=== PATIENT | male | born 1935 | race Caucasian/White ===

== ENCOUNTER → 2017-12-21 | Day surgery (SDC) | payer MEDICARE ==
[~2017-12-21] MED LIST: ALEVE220 MG PO; BUPIVACAINE 0.25%/EPI 30ML SDV INJ ONE; CALCIUM CARBON500 MG PO; CIALIS PO; DEXAMETHASONE SOD PHOS INJ 4 MG/ML VIAL ONE; FENTANYL CITRATE/PF 100MCG/2 ML INJ ONE; FENTANYL TD; KETOROLAC TROMETHAMINE 30 MG/ML VIAL ONE; LIDOCAINE HCL 1% LOCAL INJ 20 ML VIAL ONE; LIDOCAINE HCL 2% LOCAL INJ 5 ML SDV VIAL INJ ONE; LIPITOR20 MG PO; MIDAZOLAM HCL 2 MG/2 ML VIAL ONE; MSM500 MG PO; NEXIUM40 MG PO; ONDANSETRON HCL INJ 2 MG/ML VIAL ONE; PROPOFOL IV EMULSION 10 MG/ML 20 ML VIAL ONE; SEVOFLURANE INHAL SOLN 250 ML PEN BTL ONE; [UNRECOGNIZED DRUG - OTHER] PO; [UNRECOGNIZED DRUG - OTHER] PO
[2017-12-21 11:20] LABS: BASOPHILS % 0.3 % (0.0-1.0); EOSINOPHILS % 0.1 % (0.0-6.0); HEMATOCRIT 41.2 % (38.2-49.6); HEMOGLOBIN 14.1 g/dL (14.0-18.0); LYMPHOCYTES % 10.9 % (18.0-39.1); MEAN CORPUSCULAR HEMOGLOBIN 29.2 pg (28-32); MEAN CORPUSCULAR HGB CONC 34.2 g/dL (31-35); MEAN CORPUSCULAR VOLUME 85.3 fL (81-99); MONOCYTES # (AUTO) 0.8 (0.2-0.8); MONOCYTES % 8.3 % (4.4-11.3); NEUTROPHILS # (AUTO) 7.4 (2.1-6.9); PLATELET COUNT 239 x10e3/uL (140-360); RED BLOOD COUNT 4.83 x10e6/uL (4.3-5.7); RED CELL DISTRIBUTION WIDTH 14.9 % (11.7-14.4)
[2017-12-21 11:38] LABS: ANION GAP 12.5 mmol/L (8-16); BLOOD UREA NITROGEN 11 mg/dL (7-26); BUN/CREATININE RATIO 14 (6-25); CALCIUM 9.8 mg/dL (8.4-10.2); CARBON DIOXIDE 27 mmol/L (22-29); CHLORIDE 96 mmol/L (98-107); CREATININE, SERUM 0.78 mg/dL (0.72-1.25); EST GLOMERULAR FILTRATION RATE > 60 ML/MIN (60-); GLUCOSE 104 mg/dL (74-118); POTASSIUM 4.5 mmol/L (3.5-5.1); SODIUM 131 mmol/L (136-145)
--- NOTE | 2017-12-21 12:53 | Diagnostic Imaging Report ---
PROCEDURE: Frontal and lateral views of the chest. COMPARISON: None. INDICATIONS: PREOP - HERNIA SX FINDINGS: Lines/tubes: None. Lungs: The lungs are well inflated and clear. There is no evidence of pneumonia or pulmonary edema. Pleura: There is no pleural effusion or pneumothorax. Heart and mediastinum: The heart and the mediastinum are normal. Atherosclerotic calcifications. Bones: No acute bony abnormality. Multilevel kyphoplasty changes. Kyphotic angulation of the thoracic spine. IMPRESSION: No acute radiographic abnormality. Dictated by: Rolf Ortega M.D. on 12/21/2017 at 12:54 Electronically approved by: Rolf Ortega M.D. on 12/21/2017 at 12:54
--- NOTE | 2017-12-21 14:58 | Operative Report ---
DATE OF PROCEDURE: December 21, 2017 PREOPERATIVE DIAGNOSIS: Left inguinal hernia. POSTOPERATIVE DIAGNOSIS: Left inguinal hernia, sliding type. OPERATION PERFORMED: Repair of sliding left inguinal hernia with large Prolene hernia systems. [employer]ING [employer]SEM[employer]ER: JAVIER Wharton. ANESTHESIA: General. COMPLICATIONS: None. ESTIMATED BLOOD LOSS: Minimal. DESCRIPTION OF PROCEDURE: With the patient lying in bed in the supine position under good general anesthesia, the left groin was prepped with Betadine solution and draped in the usual manner. An incision was made in the left inguinal region, carried down through the subcutaneous tissue down to the external oblique aponeurosis. External oblique was opened along the length of its fibers and external inguinal ring was opened. The cord was then mobilized and retracted. Exploration of the cord revealed the presence of a large indirect hernia sac which was a sliding type of hernia with the left colon contained within it. The hernia sac was then from all of the surrounding structures and reduced back to the intra-abdominal cavity. After this was done the preperitoneal space was then entered and a pocket was created without any difficulty. A large Prolene hernia system was placed in the preperitoneal space and the underlay patch was deployed without any problems. The overlay patch was then placed over the floor and split inferolaterally to allow for passage of the cord. The mesh was then sutured to the conjoined tendon and inguinal ligament using interrupted sutures of 2-0 Vicryl. The whole area was thoroughly irrigated. Perfect hemostasis was ascertained. All layers were infiltrated on the way out with solution 1/4 percent Marcaine and 1% lidocaine mixed in equal parts. The external oblique aponeurosis was closed with a running suture of 2-0 Vicryl. The subcutaneous tissue was approximated with 3-0 plain and the skin was closed with clips. A dressing was applied. The sponge, lap and needle count was correct. The patient tolerated the procedure well and returned to the recovery room in stable condition. Job#: [id number] [facility]
== END | disposition home or self-care (01) ==
LOC: OR 09:39
PROVIDERS: ATTEND Surgery
DX: K40.90 Unilateral inguinal hernia, without obstruction or gangrene, not specified as recurrent (principal); I10 Essential (primary) hypertension; M54.5 Low back pain; Z88.5 Allergy status to narcotic agent
CPT/HCPCS: 36415; 49525; 71046; 80048; 85025; 93005; C1781; J1100; J1885; J2001 ×2; J2250; J2405

== ENCOUNTER 2020-12-23 21:26 | Inpatient (IN) | payer MEDICARE ==
[~2020-12-23] VITALS: Ht 165.1 cm; Wt 58.1 kg
[~2020-12-23 21:26] MED LIST changes: -BUPIVACAINE 0.25%/EPI 30ML SDV INJ ONE; -DEXAMETHASONE SOD PHOS INJ 4 MG/ML VIAL ONE; -FENTANYL CITRATE/PF 100MCG/2 ML INJ ONE; -KETOROLAC TROMETHAMINE 30 MG/ML VIAL ONE; -LIDOCAINE HCL 1% LOCAL INJ 20 ML VIAL ONE; -LIDOCAINE HCL 2% LOCAL INJ 5 ML SDV VIAL INJ ONE; -MIDAZOLAM HCL 2 MG/2 ML VIAL ONE; -ONDANSETRON HCL INJ 2 MG/ML VIAL ONE; -PROPOFOL IV EMULSION 10 MG/ML 20 ML VIAL ONE; -SEVOFLURANE INHAL SOLN 250 ML PEN BTL ONE
[2020-12-23 22:56] LABS: BASOPHILS # (AUTO) 0.1 (0.0-0.1); BASOPHILS % 0.6 % (0.0-1.0); EOSINOPHILS # (AUTO) 0.1 (0.0-0.4); EOSINOPHILS % 0.6 % (0.0-6.0); HEMATOCRIT 40.1 % (38.2-49.6); HEMOGLOBIN 13.1 g/dL (14.0-18.0); LYMPHOCYTES % 12.3 % (18.0-39.1); MEAN CORPUSCULAR HEMOGLOBIN 26.1 pg (28-32); MEAN CORPUSCULAR HGB CONC 32.7 g/dL (31-35); MONOCYTES % 12.7 % (4.4-11.3); NEUTROPHILS % 73.2 % (38.7-80.0); PLATELET COUNT 265 x10e3/uL (140-360); RED BLOOD COUNT 5.01 x10e6/uL (4.3-5.7); RED CELL DISTRIBUTION WIDTH 15.5 % (11.7-14.4)
[2020-12-23 23:18] LABS: ALANINE AMINOTRANSFERASE 10 IU/L (0-55); ALBUMIN 3.6 g/dL (3.5-5.0); ALBUMIN/GLOBULIN RATIO 0.9 (0.8-2.0); ALKALINE PHOSPHATASE 85 IU/L (40-150); ANION GAP 15.3 mmol/L (8-16); BLOOD UREA NITROGEN 14 mg/dL (7-26); BUN/CREATININE RATIO 18 (6-25); CALCIUM 9.1 mg/dL (8.4-10.2); CARBON DIOXIDE 25 mmol/L (22-29); CHLORIDE 96 mmol/L (98-107); CREATINE KINASE 97 IU/L (30-200); CREATININE, SERUM 0.76 mg/dL (0.72-1.25); EST GLOMERULAR FILTRATION RATE > 60 ML/MIN (60-); GLUCOSE 108 mg/dL (74-118); POTASSIUM 4.3 mmol/L (3.5-5.1); SODIUM 132 mmol/L (136-145)
[2020-12-23] MEDS ORDERED: FUROSEMIDE INJ 10 MG/ML 4 ML VIAL IV ONE (23:30)
[2020-12-24] MEDS ORDERED: ASPIRIN 81 MG CHEW TAB PO ONE (01:00)
[2020-12-24 07:01] LABS: CREATINE KINASE MB 4.1 ng/mL (0-5.0)
[2020-12-24] MEDS ORDERED: POLYETHYLENE GLYCOL 3350 17 GM PACK PO PRN (08:45)
[2020-12-24] MEDS ORDERED: POTASSIUM CHLORIDE 20 MEQ TAB CR PO PRN (08:45)
[2020-12-24] MEDS ORDERED: DOCUSATE SODIUM 100 MG CAP PO PRN (08:45)
[2020-12-24] MEDS ORDERED: ACETAMINOPHEN 325 MG TAB PO PRN (08:45)
[2020-12-24] MEDS ORDERED: DIPHENHYDRAMINE HCL 25 MG CAP PO PRN (08:45)
[2020-12-24] MEDS ORDERED: DEXTROSE 50% SYRINGE 50 ML IV PRN (08:45)
[2020-12-24] MEDS ORDERED: ONDANSETRON HCL INJ 2MG/ML 2ML 2 MG/ML VIAL IV PRN (08:45)
[2020-12-24] MEDS ORDERED: MELATONIN 5 MG TABLET PO PRN (08:45)
[2020-12-24] MEDS ORDERED: HYDRALAZINE HCL 20 MG/ML VIAL IV PRN (08:45)
[2020-12-24] MEDS ORDERED: LIDOCAINE 4% PATCH TP PRN (08:45)
[2020-12-24] MEDS ORDERED: BENZONATATE 100 MG CAP PO PRN (08:45)
[2020-12-24 08:46] LABS: ALANINE AMINOTRANSFERASE 10 IU/L (0-55); ALBUMIN 3.3 g/dL (3.5-5.0); ALBUMIN/GLOBULIN RATIO 1.1 (0.8-2.0); ALKALINE PHOSPHATASE 73 IU/L (40-150); ANION GAP 17.2 mmol/L (8-16); BLOOD UREA NITROGEN 12 mg/dL (7-26); BUN/CREATININE RATIO 17 (6-25); CALCIUM 8.3 mg/dL (8.4-10.2); CARBON DIOXIDE 25 mmol/L (22-29); CHLORIDE 94 mmol/L (98-107); CREATININE, SERUM 0.69 mg/dL (0.72-1.25); EST GLOMERULAR FILTRATION RATE > 60 ML/MIN (60-); GLUCOSE 83 mg/dL (74-118); POTASSIUM 4.2 mmol/L (3.5-5.1); SODIUM 132 mmol/L (136-145)
[2020-12-24] MEDS: ATORVASTATIN 10 MG TAB PO SCH ×2 (09:00→20:29)
[2020-12-24] MEDS: PANTOPRAZOLE SOD 40 MG TABEC PO SCH (11:33)
[2020-12-24] MEDS: FUROSEMIDE INJ 10 MG/ML 4 ML VIAL IV SCH ×2 (11:33→18:00)
[2020-12-24] MEDS ORDERED: CLINDAMYCIN 300MG 50 ML IV SCH (14:00)
[2020-12-24] MEDS ORDERED: SODIUM CHLORIDE 0.9% 250ML 250 ML ONE (14:39)
[2020-12-24 15:03] LABS: CREATINE KINASE MB 4.3 ng/mL (0-5.0)
[2020-12-24 16:00] VITALS: BP 139/64
[2020-12-24] MEDS: ENOXAPARIN SOD INJ 40 MG/0.4 ML SYR SC SCH (18:00)
[2020-12-24] MEDS ORDERED: SODIUM CHLORIDE 0.9% 50ML 50 ML ONE (18:28)
[2020-12-24] MEDS ORDERED: IOPAMIDOL 370 MG/ML 200 ML INFUS..BTL INJ ONE (18:29)
[2020-12-24 20:00] VITALS: BP 117/74
[2020-12-24 21:30] VITALS: BP 117/74
[2020-12-25] VITALS (8 sets, daily range): BP systolic 106–142; BP diastolic 59–77
[2020-12-25] MEDS: CLINDAMYCIN 300MG 50 ML IV SCH ×3 (01:13→18:25)
[2020-12-25 06:45] LABS: BASOPHILS # (AUTO) 0.1 (0.0-0.1); BASOPHILS % 0.7 % (0.0-1.0); EOSINOPHILS % 0.5 % (0.0-6.0); HEMATOCRIT 41.1 % (38.2-49.6); HEMOGLOBIN 13.5 g/dL (14.0-18.0); LYMPHOCYTES # (AUTO) 1.1 (1.0-3.2); LYMPHOCYTES % 14.8 % (18.0-39.1); MEAN CORPUSCULAR HGB CONC 32.8 g/dL (31-35); MEAN CORPUSCULAR VOLUME 79.2 fL (81-99); MONOCYTES # (AUTO) 0.7 (0.2-0.8); MONOCYTES % 9.8 % (4.4-11.3); NEUTROPHILS # (AUTO) 5.6 (2.1-6.9); NEUTROPHILS % 73.7 % (38.7-80.0); PLATELET COUNT 258 x10e3/uL (140-360); RED BLOOD COUNT 5.19 x10e6/uL (4.3-5.7); RED CELL DISTRIBUTION WIDTH 15.5 % (11.7-14.4)
[2020-12-25 07:19] LABS: ANION GAP 13.2 mmol/L (8-16); BLOOD UREA NITROGEN 11 mg/dL (7-26); BUN/CREATININE RATIO 15 (6-25); CALCIUM 8.8 mg/dL (8.4-10.2); CARBON DIOXIDE 28 mmol/L (22-29); CHLORIDE 95 mmol/L (98-107); CHOL/HDL RATIO 2.8 (3.9-4.7); CHOLESTEROL 132 MD/DL (0-199); CREATININE, SERUM 0.75 mg/dL (0.72-1.25); EST GLOMERULAR FILTRATION RATE > 60 ML/MIN (60-); GLUCOSE 93 mg/dL (74-118); HDL CHOLESTEROL 48 MG/DL (40-60); LDL CHOLESTEROL 76 MG/DL (60-130); MAGNESIUM 2.2 MG/DL (1.3-2.1); POTASSIUM 4.2 mmol/L (3.5-5.1); SODIUM 132 mmol/L (136-145); TRIGLYCERIDES 41 MG/DL (0-149)
[2020-12-25 07:29] LABS: THYROID STIMULATING HORMONE 1.517 uIU/mL (0.350-4.940)
[2020-12-25] MEDS ORDERED: PANTOPRAZOLE SOD 40 MG TABEC PO SCH (07:30)
[2020-12-25] MEDS: PANTOPRAZOLE SOD 40 MG TABEC PO SCH (07:30)
[2020-12-25] MEDS: FUROSEMIDE INJ 10 MG/ML 4 ML VIAL IV SCH ×2 (09:22→18:00)
[2020-12-25] MEDS ORDERED: METOPROLOL SUCCINATE 25 MG TAB XL PO ONE (17:00)
[2020-12-25] MEDS: ENOXAPARIN SOD INJ 40 MG/0.4 ML SYR SC SCH (18:00)
[2020-12-25] MEDS: ATORVASTATIN 10 MG TAB PO SCH (20:13)
[2020-12-26] VITALS: BP 123/69
[2020-12-26] MEDS: CLINDAMYCIN 300MG 50 ML IV SCH ×2 (01:12→10:00)
[2020-12-26 04:00] VITALS: BP 121/64
[2020-12-26 06:49] LABS: BASOPHILS # (AUTO) 0.1 (0.0-0.1); BASOPHILS % 0.8 % (0.0-1.0); EOSINOPHILS # (AUTO) 0.1 (0.0-0.4); HEMATOCRIT 39.1 % (38.2-49.6); LYMPHOCYTES # (AUTO) 1.2 (1.0-3.2); LYMPHOCYTES % 16.3 % (18.0-39.1); MEAN CORPUSCULAR HEMOGLOBIN 25.9 pg (28-32); MEAN CORPUSCULAR HGB CONC 33.2 g/dL (31-35); MEAN CORPUSCULAR VOLUME 77.9 fL (81-99); MONOCYTES # (AUTO) 0.8 (0.2-0.8); MONOCYTES % 11.8 % (4.4-11.3); NEUTROPHILS # (AUTO) 4.9 (2.1-6.9); NEUTROPHILS % 69.5 % (38.7-80.0); PLATELET COUNT 249 x10e3/uL (140-360); RED BLOOD COUNT 5.02 x10e6/uL (4.3-5.7); RED CELL DISTRIBUTION WIDTH 15.4 % (11.7-14.4)
[2020-12-26 07:07] LABS: ANION GAP 13.8 mmol/L (8-16); BLOOD UREA NITROGEN 14 mg/dL (7-26); BUN/CREATININE RATIO 20 (6-25); CALCIUM 8.3 mg/dL (8.4-10.2); CARBON DIOXIDE 25 mmol/L (22-29); CHLORIDE 94 mmol/L (98-107); EST GLOMERULAR FILTRATION RATE > 60 ML/MIN (60-); GLUCOSE 89 mg/dL (74-118); POTASSIUM 3.8 mmol/L (3.5-5.1); SODIUM 129 mmol/L (136-145)
[2020-12-26] MEDS: PANTOPRAZOLE SOD 40 MG TABEC PO SCH (07:30)
[2020-12-26 08:00] VITALS: BP 119/74
[2020-12-26] MEDS ORDERED: ASPIRIN 81 MG ENTERIC COATED PO SCH (09:00)
[2020-12-26] MEDS: FUROSEMIDE INJ 10 MG/ML 4 ML VIAL IV SCH ×2 (09:00→17:00)
[2020-12-26] MEDS ORDERED: METOPROLOL SUCCINATE 25 MG TAB XL PO SCH (09:00)
[2020-12-26 10:15] VITALS: BP 119/74
[2020-12-26 11:37] VITALS: BP 115/62
[2020-12-26] MEDS ORDERED: METOPROLOL SUCC25 MG PO (15:12)
[2020-12-26] MEDS ORDERED: ASPIRIN EC81 MG PO (15:12)
[2020-12-26] MEDS ORDERED: LISINOPRIL2.5 MG PO (15:16)
[2020-12-26] MEDS ORDERED: LASIX40 MG PO (15:16)
[2020-12-26] MEDS ORDERED: KEFLEX125 MG/5 M PO (15:16)
[2020-12-26 15:53] VITALS: BP 117/69
[2020-12-26] MEDS: ENOXAPARIN SOD INJ 40 MG/0.4 ML SYR SC SCH (17:00)
[2020-12-26] MEDS ORDERED: ATORVASTATIN 20 MG TAB PO SCH (21:00)
== END 2020-12-26 17:35 | disposition home or self-care (01) | DRG 291 ==
LOC: ER 21:45 → ERHOLD 12-24 00:57 → MED/SURG 12-24 13:12 → OBSVTOIN 12-25 09:07
PROVIDERS: ADMIT Internal Medicine; ATTEND Internal Medicine
DX: I11.0 Hypertensive heart disease with heart failure (principal); I50.21 Acute systolic (congestive) heart failure; L03.116 Cellulitis of left lower limb; L03.115 Cellulitis of right lower limb; E87.1 Hypo-osmolality and hyponatremia; M48.55XA Collapsed vertebra, not elsewhere classified, thoracolumbar region, initial encounter for fracture; K21.9 Gastro-esophageal reflux disease without esophagitis; E78.5 Hyperlipidemia, unspecified; Z88.5 Allergy status to narcotic agent; I25.10 Atherosclerotic heart disease of native coronary artery without angina pectoris; M40.205 Unspecified kyphosis, thoracolumbar region; Z20.822 Contact with and (suspected) exposure to COVID-19
CPT/HCPCS: 36415; 51700; 71045; 71260; 80048; 80053; 80061; 82550; 82553; 83036; 83735; 83880; 84100; 84443; 84484; 85025; 93306; 93970; 99285; G0378; J1650; J1940; J7050; Q9967; U0002

== ENCOUNTER 2021-04-29 09:22 | Inpatient (IN) | payer MEDICARE ==
[~2021-04-29] VITALS: Ht 165.1 cm; Wt 58.1 kg
[~2021-04-29 09:22] MED LIST changes: +ASPIRIN EC81 MG PO; +KEFLEX125 MG/5 M PO; +LASIX40 MG PO; +LISINOPRIL2.5 MG PO; +METOPROLOL SUCC25 MG PO
[2021-04-29] MEDS ORDERED: FENTANYL1 EACH TOP (10:23)
[2021-04-29] MEDS ORDERED: ASPIRIN 81 MG CHEW TAB PO ONE (10:45)
[2021-04-29 10:53] LABS: BASOPHILS % 0.2 % (0.0-1.0); HEMATOCRIT 33.9 % (38.2-49.6); HEMOGLOBIN 11.2 g/dL (14.0-18.0); LYMPHOCYTES # (AUTO) 0.3 (1.0-3.2); MEAN CORPUSCULAR HEMOGLOBIN 27.3 pg (28-32); MEAN CORPUSCULAR VOLUME 82.5 fL (81-99); MONOCYTES # (AUTO) 1.2 (0.2-0.8); MONOCYTES % 7.1 % (4.4-11.3); NEUTROPHILS % 89.9 % (38.7-80.0); PLATELET COUNT 257 x10e3/uL (140-360); RED BLOOD COUNT 4.11 x10e6/uL (4.3-5.7); RED CELL DISTRIBUTION WIDTH 15.2 % (11.7-14.4)
[2021-04-29] MEDS: FENTANYL CITRATE/PF 100MCG/2 ML INJ IV ONE ×2 (10:53→12:25)
[2021-04-29] MEDS ORDERED: SODIUM CHLORIDE 0.9% 1000ML 1,000 ML IV ONE (11:00)
[2021-04-29] MEDS ORDERED: CEFTRIAXONE 1 GM in SODIUM CHLORIDE 0.9% 50ML 50 ML IV ONE (11:00)
[2021-04-29 11:09] LABS: CLARITY,URINE CLEAR (CLEAR); COLOR,URINE YELLOW (YELLOW); KETONES,URINE NEGATIVE (NEGATIVE); LEUKOCYTE ESTERASE ,URINE NEGATIVE (NEGATIVE); NITRITE,URINE NEGATIVE (NEGATIVE); PROTEIN,URINE DIPSTICK NEGATIVE (NEGATIVE); URINE UROBILINOGEN 0.2 mg/dL (0.2 - 1)
[2021-04-29 11:11] LABS: BACTERIA,URINE FEW /HPF; EPITHELIAL CELLS,URINE FEW /LPF; RBC,URINE 0-5 /HPF (0-5); WBC,URINE (MAN) 0-5 /HPF (0-5)
[2021-04-29 11:19] LABS: ALBUMIN 3.1 g/dL (3.5-5.0); ANION GAP 15.8 mmol/L (8-16); CALCIUM 8.5 mg/dL (8.4-10.2); CREATININE, SERUM 0.75 mg/dL (0.72-1.25); POTASSIUM 3.8 mmol/L (3.5-5.1)
[2021-04-29 11:28] LABS: CREATINE KINASE MB 3.1 ng/mL (0-5.0)
[2021-04-29] MEDS ORDERED: MORPHINE SULFATE INJ 4 MG/ML INJ 1ML IV PRN ×2 (12:00→21:00)
[2021-04-29] MEDS ORDERED: ONDANSETRON HCL INJ 2MG/ML 2ML 2 MG/ML VIAL IV PRN ×2 (12:45→21:00)
[2021-04-29] MEDS ORDERED: IOPAMIDOL 370 MG/ML 200 ML INFUS..BTL INJ ONE (12:49)
[2021-04-29] MEDS ORDERED: SODIUM CHLORIDE 0.9% 50ML 50 ML ONE (12:49)
[2021-04-29] MEDS ORDERED: ATROPINE SULFATE 1 MG/ML VIAL ONE (15:27)
[2021-04-29] MEDS ORDERED: NEOSTIGMINE 1 MG/ML 10ML VIAL ONE (15:27)
[2021-04-29] MEDS ORDERED: LIDOCAINE HCL 2% LOCAL INJ 5 ML SDV VIAL INJ ONE (15:27)
[2021-04-29] MEDS ORDERED: KETOROLAC TROMETHAMINE 30 MG/ML VIAL ONE (15:27)
[2021-04-29] MEDS ORDERED: POVIDONE IODINE 0.05% 0.05 % ML PO ONE (15:27)
[2021-04-29] MEDS ORDERED: EPHEDRINE SULFATE INJ 50 MG/ML VIAL ONE (15:27)
[2021-04-29] MEDS ORDERED: DEXAMETHASONE SOD PHOS INJ 4 MG/ML SDV ONE (15:27)
[2021-04-29] MEDS ORDERED: SEVOFLURANE INHAL SOLN 250 ML PEN BTL ONE (15:27)
[2021-04-29] MEDS ORDERED: PROPOFOL IV EMULSION 10 MG/ML 20 ML VIAL ONE (15:27)
[2021-04-29] MEDS ORDERED: ROCURONIUM BROMIDE 10 MG/ML 5ML VIAL IV ONE (15:27)
[2021-04-29] MEDS ORDERED: ONDANSETRON HCL INJ 2MG/ML 2ML 2 MG/ML VIAL ONE (15:27)
[2021-04-29 16:21] LABS: INR 1.13; PROTHROMBIN TIME 14.7 seconds (11.9-14.5)
[2021-04-29 16:22] LABS: PARTIAL THROMBOPLASTIN TIME 38.2 seconds (23.8-35.5)
[2021-04-29] MEDS ORDERED: TRANEXAMIC ACID 1,000 MG/10 ML ML ONE (17:00)
[2021-04-29] MEDS ORDERED: ROPIVACAINE 246.25 MG, EPINEPHRINE HCL 1:1000 1ML 0.5 MG, CLONIDINE HCL 0.08 MG, KETORO... INJ ONE ×5 (17:00)
[2021-04-29] MEDS ORDERED: Vancomycin IV 1 GM VIAL ONE (17:00)
[2021-04-29] MEDS ORDERED: Vancomycin IV 500 MG ONE (17:00)
[2021-04-29 21:50] VITALS: BP 110/57
[2021-04-29] MEDS: Cefazolin 2 GM in SODIUM CHLORIDE 0.9% 50ML 50 ML IV SCH (23:41)
[2021-04-30] VITALS (10 sets, daily range): BP systolic 100–120; BP diastolic 42–69
[2021-04-30] MEDS ORDERED: SODIUM CHLORIDE 0.9% 250ML 250 ML ONE (00:32)
[2021-04-30] MEDS: ACETAMINOPHEN 1000 MG/100 ML IV SCH ×5 (00:39→19:08)
[2021-04-30] MEDS ORDERED: SIMETHICONE 80 MG CHEW PO PRN (01:00)
[2021-04-30] MEDS ORDERED: HYDRALAZINE HCL 20 MG/ML VIAL IV PRN (01:00)
[2021-04-30] MEDS ORDERED: POTASSIUM CHLORIDE 20 MEQ TAB CR PO PRN (01:00)
[2021-04-30] MEDS ORDERED: DIPHENHYDRAMINE HCL 25 MG CAP PO PRN (01:00)
[2021-04-30] MEDS ORDERED: MELATONIN 5 MG TABLET PO PRN (01:00)
[2021-04-30] MEDS ORDERED: DOCUSATE SODIUM 100 MG CAP PO PRN (01:00)
[2021-04-30] MEDS ORDERED: DEXTROSE 50% SYRINGE 50 ML IV PRN (01:00)
[2021-04-30] MEDS ORDERED: LIDOCAINE 4% PATCH TP PRN (01:00)
[2021-04-30] MEDS ORDERED: ALBUTEROL/IPRATROPIUM 3 ML NEB NEB PRN (01:00)
[2021-04-30] MEDS ORDERED: ONDANSETRON HCL INJ 2MG/ML 2ML 2 MG/ML VIAL IV PRN (01:00)
[2021-04-30 06:21] LABS: BASOPHILS % 0.1 % (0.0-1.0); HEMATOCRIT 34.3 % (38.2-49.6); HEMOGLOBIN 10.7 g/dL (14.0-18.0); LYMPHOCYTES # (AUTO) 0.5 (1.0-3.2); LYMPHOCYTES % 3.9 % (18.0-39.1); MEAN CORPUSCULAR HEMOGLOBIN 26.6 pg (28-32); MEAN CORPUSCULAR HGB CONC 31.2 g/dL (31-35); MEAN CORPUSCULAR VOLUME 85.3 fL (81-99); MONOCYTES # (AUTO) 0.8 (0.2-0.8); MONOCYTES % 5.9 % (4.4-11.3); NEUTROPHILS # (AUTO) 12.2 (2.1-6.9); NEUTROPHILS % 89.1 % (38.7-80.0); PLATELET COUNT 197 x10e3/uL (140-360); RED BLOOD COUNT 4.02 x10e6/uL (4.3-5.7); RED CELL DISTRIBUTION WIDTH 15.3 % (11.7-14.4)
[2021-04-30] MEDS: Cefazolin 2 GM in SODIUM CHLORIDE 0.9% 50ML 50 ML IV SCH ×2 (06:25→14:11)
[2021-04-30 06:57] LABS: ALBUMIN 2.5 g/dL (3.5-5.0); ALBUMIN/GLOBULIN RATIO 0.9 (0.8-2.0); CREATININE, SERUM 0.73 mg/dL (0.72-1.25)
[2021-04-30] MEDS: PANTOPRAZOLE SOD 40 MG TABEC PO SCH (07:30)
[2021-04-30] MEDS: CELECOXIB 100 MG CAP PO SCH ×2 (09:00→16:55)
[2021-04-30] MEDS ORDERED: NEOMYCIN/POLYMYX/BACITR OINT 0.9 GM PKT TOP PRN (13:45)
[2021-04-30] MEDS: ENOXAPARIN SOD INJ 40 MG/0.4 ML SYR SC SCH (16:55)
[2021-04-30] MEDS ORDERED: ENOXAPARIN SOD INJ 40 MG/0.4 ML SYR SC SCH (17:00)
[2021-04-30] MEDS: ALBUTEROL/IPRATROPIUM 3 ML NEB NEB SCH (18:50)
[2021-05-01] VITALS (8 sets, daily range): BP systolic 96–113; BP diastolic 57–69
[2021-05-01] MEDS: ALBUTEROL/IPRATROPIUM 3 ML NEB NEB SCH ×5 (03:40→23:15)
[2021-05-01] MEDS: PANTOPRAZOLE SOD 40 MG TABEC PO SCH (07:30)
[2021-05-01 07:40] LABS: ANION GAP 13.4 mmol/L (8-16); CALCIUM 7.8 mg/dL (8.4-10.2); CREATININE, SERUM 0.89 mg/dL (0.72-1.25); POTASSIUM 3.4 mmol/L (3.5-5.1)
[2021-05-01 08:20] LABS: BASOPHILS % 0.2 % (0.0-1.0); EOSINOPHILS # (AUTO) 0.1 (0.0-0.4); EOSINOPHILS % 0.9 % (0.0-6.0); HEMATOCRIT 34.1 % (38.2-49.6); HEMOGLOBIN 10.9 g/dL (14.0-18.0); LYMPHOCYTES # (AUTO) 0.6 (1.0-3.2); LYMPHOCYTES % 5.1 % (18.0-39.1); MEAN CORPUSCULAR HEMOGLOBIN 27.3 pg (28-32); MEAN CORPUSCULAR VOLUME 85.3 fL (81-99); MONOCYTES # (AUTO) 0.9 (0.2-0.8); MONOCYTES % 7.6 % (4.4-11.3); NEUTROPHILS # (AUTO) 10.5 (2.1-6.9); NEUTROPHILS % 85.5 % (38.7-80.0); PLATELET COUNT 213 x10e3/uL (140-360); RED CELL DISTRIBUTION WIDTH 15.5 % (11.7-14.4)
[2021-05-01] MEDS: CELECOXIB 100 MG CAP PO SCH ×2 (09:00→17:50)
[2021-05-01] MEDS: ACETAMINOPHEN 325 MG TAB PO PRN (12:38)
[2021-05-01] MEDS: ENOXAPARIN SOD INJ 40 MG/0.4 ML SYR SC SCH (17:50)
[2021-05-02] VITALS (10 sets, daily range): BP systolic 100–116; BP diastolic 56–66
[2021-05-02] MEDS ORDERED: TOCILIZUMAB 400 MG in SODIUM CHLORIDE 0.9% 100 ML IV ONE (07:00)
[2021-05-02] MEDS: ALBUTEROL/IPRATROPIUM 3 ML NEB NEB SCH ×4 (07:00→20:00)
[2021-05-02] MEDS: CELECOXIB 100 MG CAP PO SCH ×2 (08:41→18:10)
[2021-05-02] MEDS: PANTOPRAZOLE SOD 40 MG TABEC PO SCH (08:41)
[2021-05-02 09:08] LABS: ANION GAP 12.4 mmol/L (8-16); CALCIUM 7.6 mg/dL (8.4-10.2); CREATININE, SERUM 0.73 mg/dL (0.72-1.25); POTASSIUM 4.4 mmol/L (3.5-5.1)
[2021-05-02 09:33] LABS: BASOPHILS % 0.3 % (0.0-1.0); EOSINOPHILS # (AUTO) 0.1 (0.0-0.4); EOSINOPHILS % 1.1 % (0.0-6.0); HEMATOCRIT 31.3 % (38.2-49.6); LYMPHOCYTES # (AUTO) 0.8 (1.0-3.2); LYMPHOCYTES % 7.3 % (18.0-39.1); MEAN CORPUSCULAR HEMOGLOBIN 26.8 pg (28-32); MEAN CORPUSCULAR HGB CONC 31.9 g/dL (31-35); MEAN CORPUSCULAR VOLUME 83.9 fL (81-99); MONOCYTES # (AUTO) 0.9 (0.2-0.8); MONOCYTES % 9.2 % (4.4-11.3); NEUTROPHILS # (AUTO) 8.3 (2.1-6.9); NEUTROPHILS % 80.9 % (38.7-80.0); PLATELET COUNT 229 x10e3/uL (140-360); RED BLOOD COUNT 3.73 x10e6/uL (4.3-5.7); RED CELL DISTRIBUTION WIDTH 15.6 % (11.7-14.4)
[2021-05-02] MEDS: KETOROLAC TROMETHAMINE 30 MG/ML VIAL IV PRN (10:38)
[2021-05-02] MEDS: SODIUM CHLORIDE 1 GM TAB PO SCH ×2 (13:36→17:00)
[2021-05-02] MEDS: ENOXAPARIN SOD INJ 40 MG/0.4 ML SYR SC SCH (18:10)
[2021-05-03] VITALS (7 sets, daily range): BP systolic 98–121; BP diastolic 60–84
[2021-05-03] MEDS: ALBUTEROL/IPRATROPIUM 3 ML NEB NEB SCH ×5 (02:08→19:26)
[2021-05-03] MEDS: PANTOPRAZOLE SOD 40 MG TABEC PO SCH (09:58)
[2021-05-03] MEDS: DOCUSATE SODIUM 100 MG CAP PO PRN ×2 (09:58→21:40)
[2021-05-03] MEDS: CELECOXIB 100 MG CAP PO SCH ×2 (09:58→18:07)
[2021-05-03] MEDS: ENOXAPARIN SOD INJ 40 MG/0.4 ML SYR SC SCH (18:07)
[2021-05-03] MEDS: KETOROLAC TROMETHAMINE 30 MG/ML VIAL IV PRN (21:40)
[2021-05-04] VITALS (8 sets, daily range): BP systolic 109–124; BP diastolic 61–77
[2021-05-04] MEDS: ALBUTEROL/IPRATROPIUM 3 ML NEB NEB SCH ×4 (01:35→18:53)
[2021-05-04 06:21] LABS: BASOPHILS # (AUTO) 0.1 (0.0-0.1); BASOPHILS % 0.7 % (0.0-1.0); EOSINOPHILS # (AUTO) 0.2 (0.0-0.4); EOSINOPHILS % 2.4 % (0.0-6.0); HEMATOCRIT 26.8 % (38.2-49.6); HEMOGLOBIN 9.3 g/dL (14.0-18.0); LYMPHOCYTES # (AUTO) 0.7 (1.0-3.2); LYMPHOCYTES % 9.5 % (18.0-39.1); MEAN CORPUSCULAR HEMOGLOBIN 29.4 pg (28-32); MEAN CORPUSCULAR HGB CONC 34.7 g/dL (31-35); MEAN CORPUSCULAR VOLUME 84.8 fL (81-99); MONOCYTES # (AUTO) 0.8 (0.2-0.8); MONOCYTES % 10.1 % (4.4-11.3); NEUTROPHILS # (AUTO) 5.7 (2.1-6.9); NEUTROPHILS % 75.4 % (38.7-80.0); PLATELET COUNT 190 x10e3/uL (140-360); RED BLOOD COUNT 3.16 x10e6/uL (4.3-5.7); RED CELL DISTRIBUTION WIDTH 16.5 % (11.7-14.4)
[2021-05-04 06:54] LABS: ANION GAP 11.1 mmol/L (8-16); CALCIUM 7.5 mg/dL (8.4-10.2); CREATININE, SERUM 0.72 mg/dL (0.72-1.25); POTASSIUM 4.1 mmol/L (3.5-5.1)
[2021-05-04] MEDS ORDERED: ONDANSETRON HCL 4 MG ORAL DISINTEGRATING TAB PO PRN (08:15)
[2021-05-04] MEDS: PANTOPRAZOLE SOD 40 MG TABEC PO SCH (09:20)
[2021-05-04] MEDS: CELECOXIB 100 MG CAP PO SCH ×2 (09:20→17:36)
[2021-05-04] MEDS: DOCUSATE SODIUM 100 MG CAP PO PRN (10:59)
[2021-05-04] MEDS: ENOXAPARIN SOD INJ 40 MG/0.4 ML SYR SC SCH (17:36)
[2021-05-04] MEDS ORDERED: CITRATE OF MAGNESIA 300ML BOTTLE PO ONE (17:45)
[2021-05-05] VITALS (8 sets, daily range): BP systolic 104–121; BP diastolic 56–80
[2021-05-05] MEDS: ALBUTEROL/IPRATROPIUM 3 ML NEB NEB SCH ×4 (01:49→18:38)
[2021-05-05] MEDS: ACETAMINOPHEN 325 MG TAB PO PRN (03:07)
[2021-05-05] MEDS: PANTOPRAZOLE SOD 40 MG TABEC PO SCH (10:18)
[2021-05-05] MEDS: CELECOXIB 100 MG CAP PO SCH ×2 (10:18→17:46)
[2021-05-05] MEDS: ENOXAPARIN SOD INJ 40 MG/0.4 ML SYR SC SCH (17:46)
[2021-05-06 00:32] VITALS: BP 127/59
[2021-05-06] MEDS: ALBUTEROL/IPRATROPIUM 3 ML NEB NEB SCH ×3 (01:43→13:00)
[2021-05-06] MEDS: ACETAMINOPHEN 325 MG TAB PO PRN (02:52)
[2021-05-06 05:38] VITALS: BP 113/55
[2021-05-06 07:54] VITALS: BP 117/55
[2021-05-06 08:00] VITALS: BP 117/55
[2021-05-06] MEDS: PANTOPRAZOLE SOD 40 MG TABEC PO SCH (09:30)
[2021-05-06] MEDS: CELECOXIB 100 MG CAP PO SCH ×2 (09:30→17:07)
[2021-05-06 11:57] VITALS: BP 117/64
[2021-05-06 16:00] VITALS: BP 127/64
[2021-05-06] MEDS: ENOXAPARIN SOD INJ 40 MG/0.4 ML SYR SC SCH (17:07)
[2021-05-06] MEDS ORDERED: ALBUTEROL/IPRATROPIUM 3 ML NEB ONE (19:15)
== END 2021-05-06 18:10 | DRG 853 ==
LOC: ER 09:27 → ERHOLD 12:51 → MED/SURG 21:24
PROVIDERS: ADMIT Internal Medicine; ATTEND Internal Medicine
PROC: 0SRS01Z Replacement of Left Hip Joint, Femoral Surface with Metal Synthetic Substitute, Open Approach (ICD-10-PCS; principal; 2021-04-29 17:30)
DX: A41.9 Sepsis, unspecified organism (principal); S72.012A Unspecified intracapsular fracture of left femur, initial encounter for closed fracture; J18.9 Pneumonia, unspecified organism; J96.01 Acute respiratory failure with hypoxia; E87.1 Hypo-osmolality and hyponatremia; T17.890A Other foreign object in other parts of respiratory tract causing asphyxiation, initial encounter; W18.39XA Other fall on same level, initial encounter; Y93.89 Activity, other specified; Y92.013 Bedroom of single-family (private) house as the place of occurrence of the external cause; I10 Essential (primary) hypertension; K21.9 Gastro-esophageal reflux disease without esophagitis; E78.5 Hyperlipidemia, unspecified; Z87.891 Personal history of nicotine dependence; Z88.5 Allergy status to narcotic agent; Z20.822 Contact with and (suspected) exposure to COVID-19; Z82.49 Family history of ischemic heart disease and other diseases of the circulatory system; G89.4 Chronic pain syndrome; M40.205 Unspecified kyphosis, thoracolumbar region; M85.852 Other specified disorders of bone density and structure, left thigh
CPT/HCPCS: 36415; 51700; 71045; 71260; 72170; 72192; 76604; 80048; 80053; 81001; 82550; 82553; 83605; 84443; 84484; 85025; 85610; 85730; 86850; 86900; 87040; 87086; 93005; 96360; 97139; 99284; J0171; J0456; J0461; J0690; J0696; J1100; J1650; J1885; J2001; J2270; J2405; J2710; J2795; J3010; J3370; J7030; J7050; Q9967; U0002

== ENCOUNTER 2022-01-12 11:01 | Emergency (ER) | payer MEDICARE ==
[~2022-01-12] VITALS: Ht 165.1 cm; Wt 58.1 kg
[~2022-01-12 11:01] MED LIST changes: +FENTANYL1 EACH TOP
[2022-01-12 11:32] LABS: BASOPHILS # (AUTO) 0.1 (0.0-0.1); BASOPHILS % 0.7 % (0.0-1.0); EOSINOPHILS % 0.4 % (0.0-6.0); HEMATOCRIT 39.8 % (38.2-49.6); HEMOGLOBIN 12.7 g/dL (14.0-18.0); LYMPHOCYTES # (AUTO) 1.5 (1.0-3.2); MEAN CORPUSCULAR HEMOGLOBIN 25.9 pg (28-32); MEAN CORPUSCULAR HGB CONC 31.9 g/dL (31-35); MEAN CORPUSCULAR VOLUME 81.1 fL (81-99); MONOCYTES # (AUTO) 1.2 (0.2-0.8); MONOCYTES % 12.4 % (4.4-11.3); NEUTROPHILS % 70.9 % (38.7-80.0); PLATELET COUNT 309 x10e3/uL (140-360); RED BLOOD COUNT 4.91 x10e6/uL (4.3-5.7); RED CELL DISTRIBUTION WIDTH 17.2 % (11.7-14.4)
[2022-01-12 11:56] LABS: ALBUMIN 3.3 g/dL (3.5-5.0); ALBUMIN/GLOBULIN RATIO 0.8 (0.8-2.0); ANION GAP 13.7 mmol/L (8-16); CALCIUM 8.5 mg/dL (8.4-10.2); CREATININE, SERUM 0.78 mg/dL (0.72-1.25); POTASSIUM 3.7 mmol/L (3.5-5.1)
[2022-01-12 13:19] LABS: CLARITY,URINE CLEAR (CLEAR); COLOR,URINE YELLOW (YELLOW); KETONES,URINE NEGATIVE (NEGATIVE); LEUKOCYTE ESTERASE ,URINE NEGATIVE (NEGATIVE); NITRITE,URINE NEGATIVE (NEGATIVE); PROTEIN,URINE DIPSTICK NEGATIVE (NEGATIVE); URINE UROBILINOGEN 0.2 mg/dL (0.2 - 1)
[2022-01-12 13:21] LABS: BACTERIA,URINE FEW /HPF; EPITHELIAL CELLS,URINE FEW /LPF; RBC,URINE 0-5 /HPF (0-5); WBC,URINE (MAN) 0-5 /HPF (0-5)
[2022-01-12] MEDS ORDERED: IOPAMIDOL 370 MG/ML 100 ML INFUS..BTL INJ ONE (14:26)
== END 2022-01-12 15:30 | disposition home or self-care (01) ==
LOC: ER 11:04
DX: R06.02 Shortness of breath (principal); I10 Essential (primary) hypertension; M81.0 Age-related osteoporosis without current pathological fracture; E78.5 Hyperlipidemia, unspecified; K21.9 Gastro-esophageal reflux disease without esophagitis; Z20.822 Contact with and (suspected) exposure to COVID-19; Z88.6 Allergy status to analgesic agent; Z79.899 Other long term (current) drug therapy
CPT/HCPCS: 36415; 71045; 71260; 80053; 81001; 83880; 84484; 85025; 85379; 93005; 99284; Q9967; U0002

== ENCOUNTER 2023-01-03 09:55 | Inpatient (IN) | payer MEDICARE, OTHER ==
[~2023-01-03] VITALS: Ht 165.1 cm; Wt 58.1 kg
[2023-01-03 11:00] LABS: BASOPHILS # (AUTO) 0.1 (0.0-0.1); BASOPHILS % 0.4 % (0.0-1.0); EOSINOPHILS # (AUTO) 0.1 (0.0-0.4); EOSINOPHILS % 0.9 % (0.0-6.0); HEMATOCRIT 39.9 % (38.2-49.6); HEMOGLOBIN 13.9 g/dL (14.0-18.0); LYMPHOCYTES # (AUTO) 1.2 (1.0-3.2); LYMPHOCYTES % 8.7 % (18.0-39.1); MEAN CORPUSCULAR HEMOGLOBIN 27.1 pg (28-32); MEAN CORPUSCULAR HGB CONC 34.8 g/dL (31-35); MEAN CORPUSCULAR VOLUME 77.9 fL (81-99); MONOCYTES # (AUTO) 1.2 (0.2-0.8); MONOCYTES % 8.6 % (4.4-11.3); NEUTROPHILS # (AUTO) 10.8 (2.1-6.9); NEUTROPHILS % 80.7 % (38.7-80.0); PLATELET COUNT 295 x10e3/uL (140-360); RED BLOOD COUNT 5.12 x10e6/uL (4.3-5.7); RED CELL DISTRIBUTION WIDTH 15.7 % (11.7-14.4)
[2023-01-03 11:22] LABS: ALBUMIN 3.5 g/dL (3.5-5.0); ANION GAP 12.3 mmol/L (8-16); CALCIUM 8.5 mg/dL (8.4-10.2); CREATININE, SERUM 0.72 mg/dL (0.72-1.25); POTASSIUM 4.3 mmol/L (3.5-5.1)
[2023-01-03 11:43] LABS: BLOOD UREA NITROGEN 5 mg/dL (7-26); GLUCOSE 117 mg/dL (74-118); OSMOLALITY,SERUM 235 mOsm/kg (278-305)
[2023-01-03 11:47] LABS: SODIUM 117 mmol/L (136-145)
[2023-01-03] MEDS ORDERED: IOPAMIDOL 370 MG/ML 100 ML INFUS..BTL INJ ONE (12:25)
[2023-01-03 13:14] LABS: FREE THYROXINE INDEX 3.3709 (1.4-3.8); THYROID STIMULATING HORMONE 0.599 uIU/mL (0.350-4.940)
[2023-01-03] MEDS: SODIUM CHLORIDE 1 GM TAB PO SCH ×3 (13:18→22:21)
[2023-01-03] MEDS: SODIUM CHLORIDE 0.9% 1000ML 1,000 ML IV SCH (13:18)
[2023-01-03] MEDS ORDERED: ONDANSETRON HCL INJ 2MG/ML 2ML 2 MG/ML VIAL IV PRN (13:45)
[2023-01-03 13:59] LABS: CLARITY,URINE CLEAR (CLEAR); COLOR,URINE YELLOW (YELLOW); KETONES,URINE NEGATIVE (NEGATIVE); LEUKOCYTE ESTERASE ,URINE NEGATIVE (NEGATIVE); NITRITE,URINE NEGATIVE (NEGATIVE); PROTEIN,URINE DIPSTICK NEGATIVE (NEGATIVE); URINE UROBILINOGEN 0.2 mg/dL (0.2 - 1)
[2023-01-03 14:09] LABS: RBC,URINE 0-5 /HPF (0-5)
[2023-01-03 18:47] VITALS: BP 151/78; PULSE 68; RESP 18; TEMP 97.2; O2SAT 98
[2023-01-03 18:48] VITALS: BP 151/78; PULSE 68; RESP 18; TEMP 97.2; O2SAT 98
[2023-01-03] MEDS ORDERED: HYDRALAZINE HCL 20 MG/ML VIAL IV PRN (19:15)
[2023-01-03] MEDS ORDERED: ACETAMINOPHEN 325 MG TAB PO PRN (19:15)
[2023-01-03 20:00] VITALS: BP 134/80; PULSE 69; RESP 18; TEMP 97.3; TEMP 97.6; O2SAT 97
[2023-01-03 21:00] VITALS: BP 134/80; PULSE 69; RESP 18; TEMP 97.6; O2SAT 97
[2023-01-04] VITALS (10 sets, daily range): BP systolic 127–154; BP diastolic 65–73; PULSE 65–76; RESP 16–18; TEMP 97.6–98.7; O2SAT 95–100
[2023-01-04] MEDS: SODIUM CHLORIDE 0.9% 1000ML 1,000 ML IV SCH ×2 (01:54→15:10)
[2023-01-04 05:01] LABS: BASOPHILS # (AUTO) 0.1 (0.0-0.1); BASOPHILS % 0.7 % (0.0-1.0); EOSINOPHILS # (AUTO) 0.2 (0.0-0.4); EOSINOPHILS % 1.7 % (0.0-6.0); HEMATOCRIT 35.6 % (38.2-49.6); HEMOGLOBIN 12.2 g/dL (14.0-18.0); LYMPHOCYTES # (AUTO) 1.1 (1.0-3.2); LYMPHOCYTES % 10.5 % (18.0-39.1); MEAN CORPUSCULAR HEMOGLOBIN 26.8 pg (28-32); MEAN CORPUSCULAR HGB CONC 34.3 g/dL (31-35); MEAN CORPUSCULAR VOLUME 78.1 fL (81-99); MONOCYTES # (AUTO) 1.2 (0.2-0.8); MONOCYTES % 11.2 % (4.4-11.3); NEUTROPHILS # (AUTO) 7.7 (2.1-6.9); NEUTROPHILS % 74.9 % (38.7-80.0); PLATELET COUNT 230 x10e3/uL (140-360); RED BLOOD COUNT 4.56 x10e6/uL (4.3-5.7); RED CELL DISTRIBUTION WIDTH 15.4 % (11.7-14.4)
[2023-01-04 05:28] LABS: ALANINE AMINOTRANSFERASE 19 IU/L (0-55); ALBUMIN 2.8 g/dL (3.5-5.0); ALKALINE PHOSPHATASE 72 IU/L (40-150); ANION GAP 12.1 mmol/L (8-16); BLOOD UREA NITROGEN < 5 mg/dL (7-26); CARBON DIOXIDE 22 mmol/L (22-29); CHLORIDE 95 mmol/L (98-107); CREATININE, SERUM 0.61 mg/dL (0.72-1.25); GLUCOSE 84 mg/dL (74-118); POTASSIUM 4.1 mmol/L (3.5-5.1); SODIUM 125 mmol/L (136-145)
[2023-01-04 05:38] LABS: MAGNESIUM 1.8 MG/DL (1.3-2.1); PHOSPHORUS 2.8 MG/DL (2.3-4.7)
[2023-01-04 05:48] LABS: BUN/CREATININE RATIO 8 (6-25)
[2023-01-04] MEDS: SODIUM CHLORIDE 1 GM TAB PO SCH ×3 (09:42→20:40)
[2023-01-04] MEDS: DOCUSATE SODIUM 100 MG CAP PO SCH ×2 (09:43→16:40)
[2023-01-04] MEDS: FAMOTIDINE 20 MG TAB PO SCH ×2 (09:43→16:39)
[2023-01-05 00:33] VITALS: BP 155/72; PULSE 74; RESP 18; TEMP 98; O2SAT 94
[2023-01-05 04:00] VITALS: BP 154/73; PULSE 67; RESP 18; TEMP 98.6; O2SAT 95
[2023-01-05 08:14] VITALS: BP 153/64; PULSE 73; RESP 21; TEMP 98.7; O2SAT 95
[2023-01-05] MEDS ORDERED: MUPIROCIN 2% OINT 22 GM TUBE TOP SCH (09:00)
[2023-01-05 09:03] VITALS: BP 153/64; PULSE 73; RESP 21; TEMP 98.7; O2SAT 95
[2023-01-05] MEDS: FAMOTIDINE 20 MG TAB PO SCH ×2 (09:06→16:30)
[2023-01-05] MEDS: SODIUM CHLORIDE 1 GM TAB PO SCH ×2 (09:06→15:18)
[2023-01-05] MEDS: DOCUSATE SODIUM 100 MG CAP PO SCH ×2 (09:07→17:00)
[2023-01-05 12:00] VITALS: BP 140/73; PULSE 68; RESP 22; TEMP 99; O2SAT 97
[2023-01-05] MEDS ORDERED: SODIUM CHLORIDE 1 GM TAB PO ONE (12:00)
[2023-01-05] MEDS ORDERED: ONDANSETRON HCL 4 MG ORAL DISINTEGRATING TAB PO PRN (12:00)
[2023-01-05 16:09] VITALS: BP 153/75; PULSE 77; RESP 24; TEMP 98.7; O2SAT 98
== END 2023-01-05 18:33 | disposition home or self-care (01) | DRG 644 ==
LOC: ER 10:12 → ERHOLD 13:34 → MED/SURG 17:44
PROVIDERS: ADMIT Internal Medicine; ATTEND Internal Medicine
DX: E22.2 Syndrome of inappropriate secretion of antidiuretic hormone (principal); I50.42 Chronic combined systolic (congestive) and diastolic (congestive) heart failure; I11.0 Hypertensive heart disease with heart failure; R13.10 Dysphagia, unspecified; K21.00 Gastro-esophageal reflux disease with esophagitis, without bleeding; R26.9 Unspecified abnormalities of gait and mobility; E78.5 Hyperlipidemia, unspecified; M54.9 Dorsalgia, unspecified; G89.29 Other chronic pain; M81.0 Age-related osteoporosis without current pathological fracture; F03.90 Unspecified dementia, unspecified severity, without behavioral disturbance, psychotic disturbance, mood disturbance, and anxiety; G51.0 Bell's palsy; H35.30 Unspecified macular degeneration; Z20.822 Contact with and (suspected) exposure to COVID-19; Z59.6 Low income; Z87.891 Personal history of nicotine dependence
CPT/HCPCS: 0223U; 36415; 71045; 71260; 74230; 80053; 81001; 82947; 83735; 83880; 83935; 84100; 84295; 84300; 84436; 84443; 84479; 84484; 84520; 84550; 85025; 93005; 93306; 99252; 99284; J7030; Q9967

== ENCOUNTER 2023-02-13 00:47 | Inpatient (IN) | payer MEDICARE ==
[2023-02-13] VITALS (11 sets, daily range): BP systolic 92–118; BP diastolic 42–80; PULSE 69–90; RESP 15–30; TEMP 97.3–98.7; O2SAT 92–100
[~2023-02-13] VITALS: Ht 162.6 cm; Wt 82.1 kg
[~2023-02-13 00:47] MED LIST changes: +FENTANYL CITRATE/PF 100MCG/2 ML INJ ONE; +MIDAZOLAM HCL 2 MG/2 ML VIAL ONE; +MIDAZOLAM HCL 5 MG/ML VIAL ONE
[2023-02-13 01:26] LABS: BASOPHILS # (AUTO) 0.1 (0.0-0.1); BASOPHILS % 0.4 % (0.0-1.0); EOSINOPHILS # (AUTO) 0.2 (0.0-0.4); EOSINOPHILS % 1.7 % (0.0-6.0); HEMATOCRIT 34.7 % (38.2-49.6); HEMOGLOBIN 11.2 g/dL (14.0-18.0); LYMPHOCYTES # (AUTO) 1.5 (1.0-3.2); LYMPHOCYTES % 10.4 % (18.0-39.1); MEAN CORPUSCULAR HEMOGLOBIN 26.3 pg (28-32); MEAN CORPUSCULAR HGB CONC 32.3 g/dL (31-35); MEAN CORPUSCULAR VOLUME 81.5 fL (81-99); MONOCYTES % 7.3 % (4.4-11.3); NEUTROPHILS # (AUTO) 11.1 (2.1-6.9); NEUTROPHILS % 79.2 % (38.7-80.0); PLATELET COUNT 305 x10e3/uL (140-360); RED BLOOD COUNT 4.26 x10e6/uL (4.3-5.7)
[2023-02-13] MEDS ORDERED: Morphine 2mg Syringe 2 MG/ML SYR IV ONE (01:30)
[2023-02-13 01:35] LABS: INR 1.02; PROTHROMBIN TIME 13.9 seconds (11.9-14.5)
[2023-02-13 01:36] LABS: PARTIAL THROMBOPLASTIN TIME 38.3 seconds (23.8-35.5)
[2023-02-13 01:43] LABS: ANION GAP 16.1 mmol/L (8-16); CREATININE, SERUM 0.8 mg/dL (0.72-1.25); POTASSIUM 4.1 mmol/L (3.5-5.1)
[2023-02-13] MEDS: ONDANSETRON HCL INJ 2MG/ML 2ML 2 MG/ML VIAL IV PRN ×3 (04:25→12:52)
[2023-02-13] MEDS: Morphine 4mg INJECTION 4 MG/ML INJ IV PRN ×4 (04:25→23:12)
[2023-02-13] MEDS: SODIUM CHLORIDE 0.9% 1000ML 1,000 ML IV SCH ×3 (04:26→23:52)
[2023-02-13 11:22] LABS: CLARITY,URINE CLEAR (CLEAR); COLOR,URINE YELLOW (YELLOW); LEUKOCYTE ESTERASE ,URINE NEGATIVE (NEGATIVE); NITRITE,URINE NEGATIVE (NEGATIVE)
[2023-02-13 11:23] LABS: KETONES,URINE NEGATIVE (NEGATIVE); PROTEIN,URINE DIPSTICK 1+ (NEGATIVE); URINE UROBILINOGEN 1 mg/dL (0.2 - 1); WBC,URINE (MAN) 0-5 /HPF (0-5)
[2023-02-13 11:24] LABS: BACTERIA,URINE FEW /HPF
[2023-02-13 11:25] LABS: MUCUS,URINE MODERATE (RARE)
[2023-02-13] MEDS ORDERED: ESOMEPRAZOLE MA40 MG PO (12:14)
[2023-02-13] MEDS ORDERED: MIRTAZAPINE15 MG PO (12:14)
[2023-02-13] MEDS ORDERED: FUROSEMIDE40 MG PO (12:14)
[2023-02-13] MEDS ORDERED: ATORVASTATIN CA10 MG PO (12:14)
[2023-02-13] MEDS ORDERED: POVIDONE IODINE 0.05% 0.05 % ML PO ONE (13:18)
[2023-02-13] MEDS ORDERED: PROPOFOL IV EMULSION 10 MG/ML 20 ML VIAL ONE (13:18)
[2023-02-13] MEDS ORDERED: ROCURONIUM BROMIDE 10 MG/ML 5ML VIAL IV ONE (13:18)
[2023-02-13] MEDS ORDERED: SEVOFLURANE INHAL SOLN 250 ML PEN BTL ONE (13:18)
[2023-02-13] MEDS ORDERED: LIDOCAINE HCL 2% LOCAL INJ 5 ML SDV VIAL INJ ONE (13:18)
[2023-02-13] MEDS ORDERED: Vancomycin IV 1 GM VIAL ONE ×3 (15:44→20:13)
[2023-02-13] MEDS ORDERED: ROPIVACAINE 0.5% 5 MG/ML 30 ML SDV ONE (15:54)
[2023-02-13] MEDS ORDERED: DEXAMETHASONE SOD PHOS INJ 4 MG/ML SDV ONE (15:54)
[2023-02-13] MEDS ORDERED: SODIUM CHLORIDE 0.9% 250ML 0 ML ONE (18:12)
[2023-02-13] MEDS ORDERED: BUPIVACAINE HCL 0.5% INJ 30 ML VIAL INJ ONE ×2 (19:20→20:14)
[2023-02-13] MEDS: Vancomycin IV 1 GM in SODIUM CHLORIDE 0.9% 250ML 250 ML IV SCH (21:45)
[2023-02-13 22:50] LABS: ANION GAP 15.8 mmol/L (8-16); CALCIUM 7.9 mg/dL (8.4-10.2); CREATININE, SERUM 0.79 mg/dL (0.72-1.25); POTASSIUM 4.8 mmol/L (3.5-5.1)
[2023-02-14] VITALS (83 sets, daily range): BP systolic 55–154; BP diastolic 40–130; PULSE 61–92; RESP 12–40; TEMP 97.6–98.6; O2SAT 93–100
[2023-02-14] MEDS: Morphine 4mg INJECTION 4 MG/ML INJ IV PRN ×4 (04:54→20:34)
[2023-02-14 04:55] LABS: BASOPHILS % 0.1 % (0.0-1.0); LYMPHOCYTES # (AUTO) 0.9 (1.0-3.2); LYMPHOCYTES % 4.5 % (18.0-39.1); MEAN CORPUSCULAR HEMOGLOBIN 26.2 pg (28-32); MEAN CORPUSCULAR HGB CONC 31.2 g/dL (31-35); MONOCYTES % 10.3 % (4.4-11.3); NEUTROPHILS # (AUTO) 16.1 (2.1-6.9); NEUTROPHILS % 84.4 % (38.7-80.0); PLATELET COUNT 215 x10e3/uL (140-360); RED BLOOD COUNT 2.37 x10e6/uL (4.3-5.7)
[2023-02-14 05:01] LABS: HEMOGLOBIN 6.2 g/dL (14.0-18.0)
[2023-02-14 05:02] LABS: HEMATOCRIT 19.9 % (38.2-49.6)
[2023-02-14 05:12] LABS: ALBUMIN 2.4 g/dL (3.5-5.0); ANION GAP 14.2 mmol/L (8-16); CALCIUM 7.2 mg/dL (8.4-10.2); CREATININE, SERUM 0.71 mg/dL (0.72-1.25); POTASSIUM 4.2 mmol/L (3.5-5.1)
[2023-02-14 07:46] LABS: BASOPHILS % 0.1 % (0.0-1.0); LYMPHOCYTES # (AUTO) 0.8 (1.0-3.2); LYMPHOCYTES % 5.7 % (18.0-39.1); MEAN CORPUSCULAR HEMOGLOBIN 26.1 pg (28-32); MEAN CORPUSCULAR HGB CONC 31.4 g/dL (31-35); MEAN CORPUSCULAR VOLUME 83.3 fL (81-99); MONOCYTES # (AUTO) 1.7 (0.2-0.8); MONOCYTES % 11.8 % (4.4-11.3); NEUTROPHILS % 81.9 % (38.7-80.0); RED BLOOD COUNT 2.03 x10e6/uL (4.3-5.7); RED CELL DISTRIBUTION WIDTH 16.8 % (11.7-14.4)
[2023-02-14 07:50] LABS: PLATELET COUNT 183 x10e3/uL (140-360)
[2023-02-14 07:51] LABS: HEMATOCRIT 16.9 % (38.2-49.6); HEMOGLOBIN 5.3 g/dL (14.0-18.0)
[2023-02-14] MEDS ORDERED: SODIUM CHLORIDE 0.9% 250ML 250 ML IV ONE (08:00)
[2023-02-14] MEDS: ATORVASTATIN 10 MG TAB PO SCH (08:31)
[2023-02-14] MEDS: Vancomycin IV 1 GM in SODIUM CHLORIDE 0.9% 250ML 250 ML IV SCH (08:32)
[2023-02-14] MEDS: ENOXAPARIN SOD INJ 40 MG/0.4 ML SYR SC SCH (16:52)
[2023-02-14 17:24] LABS: HEMATOCRIT 27.5 % (38.2-49.6); HEMOGLOBIN 9.3 g/dL (14.0-18.0)
[2023-02-14] MEDS: SODIUM CHLORIDE 0.9% 1000ML 1,000 ML IV SCH (19:28)
[2023-02-14] MEDS: MIRTAZAPINE 15 MG TAB PO SCH (20:33)
[2023-02-15] VITALS (42 sets, daily range): BP systolic 87–131; BP diastolic 48–113; PULSE 71–89; RESP 15–35; TEMP 97.7–98.6; O2SAT 87–100
[2023-02-15] MEDS: Morphine 4mg INJECTION 4 MG/ML INJ IV PRN ×4 (01:07→20:49)
[2023-02-15 07:14] LABS: BASOPHILS % 0.3 % (0.0-1.0); EOSINOPHILS % 0.2 % (0.0-6.0); HEMATOCRIT 29.5 % (38.2-49.6); HEMOGLOBIN 9.7 g/dL (14.0-18.0); LYMPHOCYTES % 6.5 % (18.0-39.1); MEAN CORPUSCULAR HEMOGLOBIN 27.3 pg (28-32); MEAN CORPUSCULAR HGB CONC 32.9 g/dL (31-35); MEAN CORPUSCULAR VOLUME 83.1 fL (81-99); MONOCYTES # (AUTO) 2.1 (0.2-0.8); MONOCYTES % 14.2 % (4.4-11.3); NEUTROPHILS # (AUTO) 11.3 (2.1-6.9); NEUTROPHILS % 77.9 % (38.7-80.0); PLATELET COUNT 151 x10e3/uL (140-360); RED BLOOD COUNT 3.55 x10e6/uL (4.3-5.7); RED CELL DISTRIBUTION WIDTH 17.3 % (11.7-14.4)
[2023-02-15 07:37] LABS: ANION GAP 12.5 mmol/L (8-16); CALCIUM 7.5 mg/dL (8.4-10.2); CREATININE, SERUM 0.71 mg/dL (0.72-1.25); POTASSIUM 4.5 mmol/L (3.5-5.1)
[2023-02-15] MEDS: SODIUM CHLORIDE 0.9% 1000ML 1,000 ML IV SCH ×2 (07:37→21:23)
[2023-02-15 08:07] LABS: % IRON SATURATION 8 % (15-50); IRON 14 ug/dL (65-175); TOTAL IRON BINDING CAPACITY 168 ug/dL (261-478); TRANSFERRIN 120 mg/dL (174-364)
[2023-02-15] MEDS: ATORVASTATIN 10 MG TAB PO SCH (08:18)
[2023-02-15] MEDS: ENOXAPARIN SOD INJ 40 MG/0.4 ML SYR SC SCH (17:16)
[2023-02-15] MEDS: MIRTAZAPINE 15 MG TAB PO SCH (20:48)
[2023-02-16] VITALS (26 sets, daily range): BP systolic 85–135; BP diastolic 42–101; PULSE 65–89; RESP 19–34; TEMP 97.9–98.6; O2SAT 91–100
[2023-02-16 06:51] LABS: HEMATOCRIT 28.6 % (38.2-49.6); HEMOGLOBIN 9.4 g/dL (14.0-18.0); MEAN CORPUSCULAR HEMOGLOBIN 27.5 pg (28-32); MEAN CORPUSCULAR HGB CONC 32.9 g/dL (31-35); MEAN CORPUSCULAR VOLUME 83.6 fL (81-99); PLATELET COUNT 215 x10e3/uL (140-360); RED BLOOD COUNT 3.42 x10e6/uL (4.3-5.7); RED CELL DISTRIBUTION WIDTH 17.4 % (11.7-14.4)
[2023-02-16 07:13] LABS: ANION GAP 11.5 mmol/L (8-16); CALCIUM 7.3 mg/dL (8.4-10.2); CREATININE, SERUM 0.61 mg/dL (0.72-1.25); POTASSIUM 3.5 mmol/L (3.5-5.1)
[2023-02-16] MEDS: ATORVASTATIN 10 MG TAB PO SCH (09:45)
[2023-02-16 09:50] LABS: EOSINOPHILS % (MANUAL) 2 % (0-7); LYMPHOCYTES % (MANUAL) 15 % (19-48); METAMYELOCYTES % (MANUAL) 1 % (0-0); MONOCYTES % (MANUAL) 7 % (3.4-9.0); MYELOCYTES % (MANUAL) 1 % (0-0); NEUTROPHILS % (MANUAL) 72 % (40-74); PLATELET ESTIMATE ADEQUATE; PLATELET MORPHOLOGY COMMENT NORMAL; RBC MORPHOLOGY COMMENT NORMAL
[2023-02-16] MEDS: SODIUM CHLORIDE 0.9% 1000ML 1,000 ML IV SCH (10:19)
[2023-02-16] MEDS ORDERED: HYDROCODONE/APAP 7.5MG-325MG 1 EA TAB PO PRN (13:00)
[2023-02-16] MEDS: Morphine 2mg Syringe 2 MG/ML SYR IV PRN ×2 (14:53→19:23)
[2023-02-16] MEDS: ENOXAPARIN SOD INJ 40 MG/0.4 ML SYR SC SCH (17:56)
[2023-02-16] MEDS: MIRTAZAPINE 15 MG TAB PO SCH (20:34)
[2023-02-17] VITALS (12 sets, daily range): BP systolic 85–125; BP diastolic 49–69; PULSE 70–80; RESP 17–34; TEMP 97.5–98.3; O2SAT 98–100
[2023-02-17] MEDS: Morphine 2mg Syringe 2 MG/ML SYR IV PRN ×3 (03:09→10:10)
[2023-02-17] MEDS: ONDANSETRON HCL INJ 2MG/ML 2ML 2 MG/ML VIAL IV PRN ×2 (03:09→10:09)
[2023-02-17 06:42] LABS: HEMATOCRIT 27.8 % (38.2-49.6); HEMOGLOBIN 8.8 g/dL (14.0-18.0); MEAN CORPUSCULAR HEMOGLOBIN 26.7 pg (28-32); MEAN CORPUSCULAR HGB CONC 31.7 g/dL (31-35); MEAN CORPUSCULAR VOLUME 84.5 fL (81-99); PLATELET COUNT 225 x10e3/uL (140-360); RED BLOOD COUNT 3.29 x10e6/uL (4.3-5.7); RED CELL DISTRIBUTION WIDTH 17.4 % (11.7-14.4)
[2023-02-17 07:06] LABS: ANION GAP 10.2 mmol/L (8-16); CALCIUM 7.4 mg/dL (8.4-10.2); CREATININE, SERUM 0.57 mg/dL (0.72-1.25); POTASSIUM 3.2 mmol/L (3.5-5.1)
[2023-02-17] MEDS: ATORVASTATIN 10 MG TAB PO SCH (10:10)
[2023-02-17] MEDS ORDERED: MAGNESIUM HYDROXIDE 30 ML UDC PO ONE (10:15)
[2023-02-17] MEDS: SODIUM FERRIC GLUCONATE COMPLX 125 MG in SODIUM CHLORIDE 0.9% 100 ML IV SCH (10:36)
[2023-02-17 11:06] LABS: EOSINOPHILS % (MANUAL) 1 % (0-7); LYMPHOCYTES % (MANUAL) 12 % (19-48); MONOCYTES % (MANUAL) 14 % (3.4-9.0); MYELOCYTES % (MANUAL) 1 % (0-0); NEUTROPHILS % (MANUAL) 71 % (40-74); PLATELET ESTIMATE ADEQUATE; PLATELET MORPHOLOGY COMMENT NORMAL; RBC MORPHOLOGY COMMENT NORMAL
[2023-02-17] MEDS ORDERED: POTASSIUM CHLORIDE 20 MEQ TAB CR PO ONE (16:00)
[2023-02-17] MEDS: DOCUSATE SODIUM 100 MG CAP PO SCH (16:56)
[2023-02-17] MEDS: ENOXAPARIN SOD INJ 40 MG/0.4 ML SYR SC SCH (16:56)
[2023-02-17] MEDS: MIRTAZAPINE 15 MG TAB PO SCH (20:11)
[2023-02-18] VITALS (10 sets, daily range): BP systolic 97–116; BP diastolic 48–64; PULSE 54–78; RESP 16–19; TEMP 97.6–98.7; O2SAT 97–100
[2023-02-18 04:58] LABS: BASOPHILS # (AUTO) 0.1 (0.0-0.1); BASOPHILS % 0.4 % (0.0-1.0); EOSINOPHILS # (AUTO) 0.3 (0.0-0.4); EOSINOPHILS % 2.4 % (0.0-6.0); HEMOGLOBIN 8.1 g/dL (14.0-18.0); LYMPHOCYTES % 8.2 % (18.0-39.1); MEAN CORPUSCULAR HEMOGLOBIN 27.3 pg (28-32); MEAN CORPUSCULAR HGB CONC 31.2 g/dL (31-35); MONOCYTES # (AUTO) 1.6 (0.2-0.8); MONOCYTES % 12.6 % (4.4-11.3); NEUTROPHILS # (AUTO) 9.3 (2.1-6.9); NEUTROPHILS % 74.2 % (38.7-80.0); PLATELET COUNT 231 x10e3/uL (140-360); RED BLOOD COUNT 2.97 x10e6/uL (4.3-5.7); RED CELL DISTRIBUTION WIDTH 17.5 % (11.7-14.4)
[2023-02-18 05:04] LABS: MEAN CORPUSCULAR VOLUME 87.5 fL (81-99)
[2023-02-18 05:24] LABS: ANION GAP 10.5 mmol/L (8-16); CALCIUM 7.3 mg/dL (8.4-10.2); CREATININE, SERUM 0.62 mg/dL (0.72-1.25); POTASSIUM 4.5 mmol/L (3.5-5.1)
[2023-02-18] MEDS: ATORVASTATIN 10 MG TAB PO SCH (09:13)
[2023-02-18] MEDS: DOCUSATE SODIUM 100 MG CAP PO SCH ×2 (09:13→16:42)
[2023-02-18] MEDS: SODIUM FERRIC GLUCONATE COMPLX 125 MG in SODIUM CHLORIDE 0.9% 100 ML IV SCH (09:28)
[2023-02-18] MEDS ORDERED: SENNA-S TABLET PO PRN (10:45)
[2023-02-18] MEDS ORDERED: BISACODYL 10 MG SUPP PR PRN (10:45)
[2023-02-18] MEDS: ENOXAPARIN SOD INJ 40 MG/0.4 ML SYR SC SCH (16:42)
[2023-02-18] MEDS: POLYETHYLENE GLYCOL 3350 17 GM PACK PO SCH (16:42)
[2023-02-18] MEDS: MIRTAZAPINE 15 MG TAB PO SCH (20:40)
[2023-02-18] MEDS: ONDANSETRON HCL INJ 2MG/ML 2ML 2 MG/ML VIAL IV PRN (20:41)
[2023-02-18] MEDS: Morphine 2mg Syringe 2 MG/ML SYR IV PRN (20:41)
[2023-02-19] VITALS (9 sets, daily range): BP systolic 103–114; BP diastolic 55–60; PULSE 44–80; RESP 15–20; TEMP 97.9–98.9; O2SAT 98–100
[2023-02-19] MEDS: Morphine 2mg Syringe 2 MG/ML SYR IV PRN (01:16)
[2023-02-19] MEDS: ONDANSETRON HCL INJ 2MG/ML 2ML 2 MG/ML VIAL IV PRN (01:16)
[2023-02-19] MEDS: POLYETHYLENE GLYCOL 3350 17 GM PACK PO SCH ×2 (08:06→17:11)
[2023-02-19] MEDS: DOCUSATE SODIUM 100 MG CAP PO SCH ×2 (08:06→17:11)
[2023-02-19] MEDS: ATORVASTATIN 10 MG TAB PO SCH (08:06)
[2023-02-19] MEDS: SODIUM FERRIC GLUCONATE COMPLX 125 MG in SODIUM CHLORIDE 0.9% 100 ML IV SCH (08:06)
[2023-02-19] MEDS: TRAMADOL HCL 50 MG TAB PO PRN (08:09)
[2023-02-19] MEDS ORDERED: CITRATE OF MAGNESIA 300ML BOTTLE PO ONE (10:00)
[2023-02-19] MEDS: COLLAGENASE 5 GM TUBE TOP SCH (15:39)
[2023-02-19] MEDS: ENOXAPARIN SOD INJ 40 MG/0.4 ML SYR SC SCH (17:11)
[2023-02-19] MEDS: MIRTAZAPINE 15 MG TAB PO SCH (20:27)
[2023-02-20] VITALS (7 sets, daily range): BP systolic 106–116; BP diastolic 47–65; PULSE 72–81; RESP 16–22; TEMP 97.5–98.8; O2SAT 95–100
[2023-02-20 04:45] LABS: BASOPHILS # (AUTO) 0.1 (0.0-0.1); BASOPHILS % 0.6 % (0.0-1.0); EOSINOPHILS # (AUTO) 0.4 (0.0-0.4); EOSINOPHILS % 2.3 % (0.0-6.0); HEMATOCRIT 25.9 % (38.2-49.6); HEMOGLOBIN 8.2 g/dL (14.0-18.0); LYMPHOCYTES # (AUTO) 1.3 (1.0-3.2); LYMPHOCYTES % 8.5 % (18.0-39.1); MEAN CORPUSCULAR HEMOGLOBIN 27.1 pg (28-32); MEAN CORPUSCULAR HGB CONC 31.7 g/dL (31-35); MEAN CORPUSCULAR VOLUME 85.5 fL (81-99); MONOCYTES # (AUTO) 1.7 (0.2-0.8); MONOCYTES % 10.9 % (4.4-11.3); NEUTROPHILS # (AUTO) 10.9 (2.1-6.9); PLATELET COUNT 315 x10e3/uL (140-360); RED BLOOD COUNT 3.03 x10e6/uL (4.3-5.7); RED CELL DISTRIBUTION WIDTH 18.4 % (11.7-14.4)
[2023-02-20 05:04] LABS: ANION GAP 10.3 mmol/L (8-16); CALCIUM 7.7 mg/dL (8.4-10.2); CREATININE, SERUM 0.64 mg/dL (0.72-1.25); MAGNESIUM 2.1 MG/DL (1.3-2.1); PHOSPHORUS 2.3 MG/DL (2.3-4.7); POTASSIUM 4.3 mmol/L (3.5-5.1)
[2023-02-20] MEDS: TRAMADOL HCL 50 MG TAB PO PRN ×2 (06:48→20:18)
[2023-02-20] MEDS: DOCUSATE SODIUM 100 MG CAP PO SCH ×2 (08:23→16:39)
[2023-02-20] MEDS: POLYETHYLENE GLYCOL 3350 17 GM PACK PO SCH ×2 (08:23→16:39)
[2023-02-20] MEDS: ATORVASTATIN 10 MG TAB PO SCH (08:23)
[2023-02-20] MEDS: COLLAGENASE 5 GM TUBE TOP SCH (10:31)
[2023-02-20] MEDS: ENOXAPARIN SOD INJ 40 MG/0.4 ML SYR SC SCH (16:39)
[2023-02-20] MEDS: MIRTAZAPINE 15 MG TAB PO SCH (20:18)
[2023-02-21] VITALS (8 sets, daily range): BP systolic 105–128; BP diastolic 52–75; PULSE 64–100; RESP 16–20; TEMP 97.6–98.9; O2SAT 95–100
[2023-02-21] MEDS: TRAMADOL HCL 50 MG TAB PO PRN ×2 (05:08→20:14)
[2023-02-21] MEDS: POLYETHYLENE GLYCOL 3350 17 GM PACK PO SCH ×2 (09:00→17:00)
[2023-02-21] MEDS: DOCUSATE SODIUM 100 MG CAP PO SCH ×2 (09:00→17:00)
[2023-02-21] MEDS: ATORVASTATIN 10 MG TAB PO SCH (10:32)
[2023-02-21] MEDS ORDERED: SODIUM CHLORIDE 0.9% 250ML 250 ML ONE (12:31)
[2023-02-21] MEDS: COLLAGENASE 5 GM TUBE TOP SCH (17:22)
[2023-02-21] MEDS: MIRTAZAPINE 15 MG TAB PO SCH (20:02)
[2023-02-22] VITALS (7 sets, daily range): BP systolic 100–116; BP diastolic 50–56; PULSE 65–81; RESP 17–20; TEMP 97.5–98.7; O2SAT 95–98
[2023-02-22 04:54] LABS: BASOPHILS # (AUTO) 0.1 (0.0-0.1); BASOPHILS % 0.3 % (0.0-1.0); EOSINOPHILS # (AUTO) 0.2 (0.0-0.4); EOSINOPHILS % 0.9 % (0.0-6.0); HEMATOCRIT 26.8 % (38.2-49.6); HEMOGLOBIN 8.5 g/dL (14.0-18.0); LYMPHOCYTES # (AUTO) 1.6 (1.0-3.2); LYMPHOCYTES % 8.8 % (18.0-39.1); MEAN CORPUSCULAR HEMOGLOBIN 28.1 pg (28-32); MEAN CORPUSCULAR HGB CONC 31.7 g/dL (31-35); MEAN CORPUSCULAR VOLUME 88.7 fL (81-99); MONOCYTES # (AUTO) 1.6 (0.2-0.8); MONOCYTES % 8.8 % (4.4-11.3); NEUTROPHILS # (AUTO) 13.9 (2.1-6.9); NEUTROPHILS % 74.6 % (38.7-80.0); PLATELET COUNT 373 x10e3/uL (140-360); RED BLOOD COUNT 3.02 x10e6/uL (4.3-5.7); RED CELL DISTRIBUTION WIDTH 19.9 % (11.7-14.4)
[2023-02-22 05:17] LABS: ALBUMIN 1.9 g/dL (3.5-5.0); ALBUMIN/GLOBULIN RATIO 0.7 (0.8-2.0); ANION GAP 10.7 mmol/L (8-16); CALCIUM 7.8 mg/dL (8.4-10.2); CREATININE, SERUM 0.67 mg/dL (0.72-1.25); POTASSIUM 4.7 mmol/L (3.5-5.1)
[2023-02-22] MEDS: ATORVASTATIN 10 MG TAB PO SCH (08:40)
[2023-02-22] MEDS ORDERED: ONDANSETRON HCL 4 MG ORAL DISINTEGRATING TAB PO PRN (08:45)
[2023-02-22] MEDS: POLYETHYLENE GLYCOL 3350 17 GM PACK PO SCH ×2 (08:47→17:00)
[2023-02-22] MEDS: DOCUSATE SODIUM 100 MG CAP PO SCH ×2 (08:47→17:00)
[2023-02-22] MEDS: COLLAGENASE 5 GM TUBE TOP SCH (16:20)
[2023-02-22] MEDS: MIRTAZAPINE 15 MG TAB PO SCH (20:11)
[2023-02-22] MEDS: ACETAMINOPHEN 325 MG TAB PO PRN (20:12)
[2023-02-22] MEDS: TRAMADOL HCL 50 MG TAB PO PRN (20:13)
[2023-02-23] VITALS (8 sets, daily range): BP systolic 99–142; BP diastolic 56–94; PULSE 61–87; RESP 17–20; TEMP 97.6–98; O2SAT 94–99
[2023-02-23 04:52] LABS: BASOPHILS # (AUTO) 0.1 (0.0-0.1); BASOPHILS % 0.5 % (0.0-1.0); EOSINOPHILS # (AUTO) 0.3 (0.0-0.4); EOSINOPHILS % 2.3 % (0.0-6.0); HEMATOCRIT 27.3 % (38.2-49.6); HEMOGLOBIN 8.7 g/dL (14.0-18.0); LYMPHOCYTES # (AUTO) 1.3 (1.0-3.2); LYMPHOCYTES % 8.9 % (18.0-39.1); MEAN CORPUSCULAR HEMOGLOBIN 27.9 pg (28-32); MEAN CORPUSCULAR HGB CONC 31.9 g/dL (31-35); MEAN CORPUSCULAR VOLUME 87.5 fL (81-99); MONOCYTES # (AUTO) 1.3 (0.2-0.8); MONOCYTES % 9.2 % (4.4-11.3); NEUTROPHILS # (AUTO) 10.4 (2.1-6.9); NEUTROPHILS % 71.9 % (38.7-80.0); PLATELET COUNT 390 x10e3/uL (140-360); RED BLOOD COUNT 3.12 x10e6/uL (4.3-5.7); RED CELL DISTRIBUTION WIDTH 20.5 % (11.7-14.4)
[2023-02-23 05:11] LABS: ANION GAP 10.4 mmol/L (8-16); CREATININE, SERUM 0.64 mg/dL (0.72-1.25); POTASSIUM 4.4 mmol/L (3.5-5.1)
[2023-02-23] MEDS: DOCUSATE SODIUM 100 MG CAP PO SCH ×2 (09:00→16:55)
[2023-02-23] MEDS: POLYETHYLENE GLYCOL 3350 17 GM PACK PO SCH ×2 (09:00→16:55)
[2023-02-23] MEDS: FERROUS SULFATE 325 MG TAB PO SCH (09:13)
[2023-02-23] MEDS: ATORVASTATIN 10 MG TAB PO SCH (09:13)
[2023-02-23] MEDS: ACETAMINOPHEN 325 MG TAB PO PRN ×2 (11:29→22:17)
[2023-02-23] MEDS ORDERED: ENOXAPARIN 30 MG/0.3 ML SYR SC SCH (17:00)
[2023-02-23] MEDS: COLLAGENASE 5 GM TUBE TOP SCH (17:05)
[2023-02-23] MEDS: MIRTAZAPINE 15 MG TAB PO SCH (22:16)
[2023-02-24] MEDS: TRAMADOL HCL 50 MG TAB PO PRN ×2 (05:42→15:15)
[2023-02-24] MEDS: ACETAMINOPHEN 325 MG TAB PO PRN (05:43)
[2023-02-24 06:33] VITALS: BP 127/59; PULSE 66; RESP 18; TEMP 98; O2SAT 96
[2023-02-24 07:00] LABS: BASOPHILS # (AUTO) 0.1 (0.0-0.1); BASOPHILS % 0.8 % (0.0-1.0); EOSINOPHILS # (AUTO) 0.2 (0.0-0.4); EOSINOPHILS % 1.7 % (0.0-6.0); HEMATOCRIT 29.7 % (38.2-49.6); HEMOGLOBIN 9.3 g/dL (14.0-18.0); LYMPHOCYTES # (AUTO) 1.3 (1.0-3.2); LYMPHOCYTES % 9.6 % (18.0-39.1); MEAN CORPUSCULAR HGB CONC 31.3 g/dL (31-35); MEAN CORPUSCULAR VOLUME 89.5 fL (81-99); MONOCYTES # (AUTO) 1.1 (0.2-0.8); MONOCYTES % 8.1 % (4.4-11.3); NEUTROPHILS # (AUTO) 9.9 (2.1-6.9); PLATELET COUNT 451 x10e3/uL (140-360); RED BLOOD COUNT 3.32 x10e6/uL (4.3-5.7); RED CELL DISTRIBUTION WIDTH 20.9 % (11.7-14.4)
[2023-02-24 07:24] LABS: ALBUMIN 2.1 g/dL (3.5-5.0); ALBUMIN/GLOBULIN RATIO 0.7 (0.8-2.0); ANION GAP 9.8 mmol/L (8-16); CALCIUM 7.9 mg/dL (8.4-10.2); CREATININE, SERUM 0.65 mg/dL (0.72-1.25); POTASSIUM 3.8 mmol/L (3.5-5.1)
[2023-02-24] MEDS: ATORVASTATIN 10 MG TAB PO SCH (08:06)
[2023-02-24] MEDS: FERROUS SULFATE 325 MG TAB PO SCH (08:06)
[2023-02-24] MEDS: DOCUSATE SODIUM 100 MG CAP PO SCH (08:07)
[2023-02-24] MEDS: POLYETHYLENE GLYCOL 3350 17 GM PACK PO SCH (08:07)
[2023-02-24 08:27] VITALS: BP 124/55; PULSE 71; RESP 24; TEMP 97.4; O2SAT 98
[2023-02-24 09:40] VITALS: PULSE 51; RESP 22; O2SAT 96
[2023-02-24 11:41] LABS: BAND NEUTROPHILS % (MANUAL) 1 %; EOSINOPHILS % (MANUAL) 2 % (0-7); LYMPHOCYTES % (MANUAL) 12 % (19-48); METAMYELOCYTES % (MANUAL) 2 % (0-0); MONOCYTES % (MANUAL) 7 % (3.4-9.0); MYELOCYTES % (MANUAL) 1 % (0-0); NEUTROPHILS % (MANUAL) 75 % (40-74)
[2023-02-24 11:42] LABS: PLATELET ESTIMATE SLIGHTLY INCREASED; PLATELET MORPHOLOGY COMMENT NORMAL
[2023-02-24 12:41] VITALS: BP 115/64; PULSE 84; RESP 25; TEMP 97.6; O2SAT 99
[2023-02-24] MEDS: COLLAGENASE 5 GM TUBE TOP SCH (14:51)
[2023-02-24] MEDS ORDERED: MIRALAX17 GM PO (15:34)
[2023-02-24] MEDS ORDERED: LOVENOX30 MG/0.3 SC (15:34)
[2023-02-24] MEDS ORDERED: CEFTRIAXON1 GM/50 M2 IV (15:34)
[2023-02-24] MEDS ORDERED: SENNA S TABLET1 EACH PO (15:34)
[2023-02-24] MEDS ORDERED: ACETAMINOPHEN325 M1 PO (15:34)
[2023-02-24] MEDS ORDERED: FERROUS SULFAT325 MG PO (15:34)
[2023-02-24] MEDS ORDERED: ULTRAM 50MG50 MG PO (15:34)
[2023-02-24] MEDS ORDERED: DULCOLAX SUPP10 MG PR (15:34)
[2023-02-24] MEDS ORDERED: ONDANSETRON ODT4 MG PO (15:34)
[2023-02-24 16:07] VITALS: PULSE 80; TEMP 97.9
[2023-02-24 16:10] VITALS: BP 122/60; PULSE 80; RESP 24; TEMP 97.9; O2SAT 100
== END 2023-02-24 16:00 | DRG 480 ==
LOC: ER 00:59 → INTOOBSV 03:43 → ERHOLD 03:43 → OBSVTOIN 03:43 → MED/SURG 04:02 → ICU 22:03 → MED/SURG 02-17 16:25
PROVIDERS: ADMIT Internal Medicine; ATTEND Internal Medicine
PROC: 0QS636Z Reposition Right Upper Femur with Intramedullary Internal Fixation Device, Percutaneous Approach (ICD-10-PCS; principal; 2023-02-13 18:11)
PROC: 0PSF04Z Reposition Right Humeral Shaft with Internal Fixation Device, Open Approach (ICD-10-PCS; 2023-02-13 18:11)
PROC: 30233N1 Transfusion of Nonautologous Red Blood Cells into Peripheral Vein, Percutaneous Approach (ICD-10-PCS; 2023-02-14)
DX: S72.141A Displaced intertrochanteric fracture of right femur, initial encounter for closed fracture (principal); G93.41 Metabolic encephalopathy; S42.201A Unspecified fracture of upper end of right humerus, initial encounter for closed fracture; D62 Acute posthemorrhagic anemia; W01.0XXA Fall on same level from slipping, tripping and stumbling without subsequent striking against object, initial encounter; I10 Essential (primary) hypertension; K21.9 Gastro-esophageal reflux disease without esophagitis; M54.9 Dorsalgia, unspecified; G89.29 Other chronic pain; M81.0 Age-related osteoporosis without current pathological fracture; E75.6 Lipid storage disorder, unspecified; F03.A0 Unspecified dementia, mild, without behavioral disturbance, psychotic disturbance, mood disturbance, and anxiety; H35.30 Unspecified macular degeneration; K44.9 Diaphragmatic hernia without obstruction or gangrene; G51.0 Bell's palsy; E78.2 Mixed hyperlipidemia; K59.00 Constipation, unspecified; E87.6 Hypokalemia; S51.011A Laceration without foreign body of right elbow, initial encounter; S80.10XA Contusion of unspecified lower leg, initial encounter; S30.22XA Contusion of scrotum and testes, initial encounter; D50.9 Iron deficiency anemia, unspecified; R13.10 Dysphagia, unspecified; D72.829 Elevated white blood cell count, unspecified; Z20.822 Contact with and (suspected) exposure to COVID-19; Z87.891 Personal history of nicotine dependence
CPT/HCPCS: 36415; 51700; 70450; 71045; 72125; 72170; 74230; 76000; 80048; 80053; 81001; 83540; 83735; 84100; 84466; 85007; 85014; 85018; 85025; 85027; 85610; 85730; 86850; 86900; 86920; 93005; 94799; 96360; 99252; 99284; C1713; J0696; J1100; J1650; J2001; J2270; J2405; J2795; J2916; J7030; J7050; P9016